=== PATIENT | male | born 1975 | race Caucasian/White ===

== ENCOUNTER 2017-02-04 20:26 | Emergency (ER) | payer OTHER ==
[~2017-02-04] VITALS: Ht 175.3 cm; Wt 133.5 kg
[2017-02-04 21:11] VITALS: Ht 175.3 cm; Wt 133.5 kg
--- NOTE | 2017-02-04 21:40 | ERD ---
ER Documentation Chief Complaint Date/Time DATE: 02/04/17 TIME: 21:34 Chief Complaint LEFT EAR PAIN, WENT SWIMMING "WATER POSSIBLY WENT INSIDE" HPI This [id number] old Mosotho speaking male patient presents to emergency department with for evaluation of left or otalgia. Symptoms started after swimming 5 days ago. Patient reports pain has its own heartbeat and it is described as pressure, denies change in hearing reports sensation of water in his ear, has been taking [id number] Advil with little relief of symptoms. Patient denies any runny nose, fever, or dizziness. Patient denies antibiotic use in the last 3 months, denies smoking. ROS All systems reviewed and are negative except as per history of present illness. Allergies Allergies: Coded Allergies: No Known Allergy (Unverified , 11/08/14) PMhx/Soc Hx Alcohol Use: No Hx Substance Use: No Hx Tobacco Use: No Physical Exam Vitals Vital Signs Date Time Temp Pulse Resp B/P Pulse Ox O2 Delivery O2 Flow Rate FiO2 02/04/17 21:11 98.5 75 18 138/78 98 Vitals stable, triage notes reviewed Physical Exam Const: No acute distress Head: Atraumatic Eyes: Normal Conjunctiva, PERRLA, EOMI ENT: Right tympanic membrane is erythematous, bulging, with positive light reflex, left tympanic membrane is distorted, boggy, with purulent discharge between 1500 and 1800 light reflex is not visualized, no mastoid tenderness Neck: Full range of motion..~ No meningismus Resp: Chest rises and falls symmetrically, clear to auscultation bilaterally no rales wheezes or rhonchi Cardio: Regular rate and rhythm, no murmurs Abd: Soft, non tender, non distended. No epigastric pain Skin: Back: Ext: Neur: Awake and alert Psych: Normal Mood and Affect Procedures/MDM This pleasant 41-year-old Mosotho speaking male patient brought into emergency department today by for 4 day history of otalgia. Patient has no other associated symptoms, denies dizziness, nasal congestion runny nose postnasal drip. Allergic rhinitis, mastoiditis, or foreign body is not suspected. History and physical exam support a otitis media. Patient will be treated with Augmentin 875 mg twice daily 10 days, will be given 400 mg ibuprofen for pain. Warm compresses, return to emergency department if symptoms fail to improve as anticipated, fever, change in hearing, or discharge coming from the ear. Maladies MDM Departure Diagnosis: Primary Impression: Otitis media Otitis media type: suppurative Laterality: left Chronicity: acute Recurrence: not specified as recurrent Spontaneous tympanic membrane rupture: without spontaneous rupture Qualified Code: H66.002 - Acute suppurative otitis media of left ear without spontaneous rupture of tympanic membrane, recurrence not specified Condition: Good Patient Instructions: Otitis Media, Abx Tx (Adult) Referrals: [facility] Additional Instructions: Thank you for for coming to [facility] for your care today. Please ask your nurse or provider if you have questions about your care today and do not leave until all your questions have been answered. Please use any medications given as directed and follow-up with your doctor (or the doctor you were referred to) in the next 2-3 days. If you do not have a primary care doctor you may follow up at the [facility] (listed below). You may also use motrin and tylenol as needed for fever and/or pain unless instructed otherwise by your provider or nurse. Indications for more urgent follow-up have been discussed, but you may return to the Emergency Department at ANY time for any worrisome or worsening symptoms. If you have abdominal pain, please know that no test or exam you received is perfect and you should follow up within 8 hours for continued pain. If you had any imaging studies today, such as an X-Ray or CT Scan, these studies will be reviewed later by a radiologist. You will be called if there are important findings that were not identified today, so make sure the contact information you provided at registration is correct. If you received any narcotic pain control medicine today, such as Vicodin, Morphine or Dilaudid, your coordination and judgment may be affected for a number of hours. Please do not drive or operate heavy machinery, and you may want someone to assist you at home. If you were given a prescription for narcotic medication, be aware that it is very addictive- use sparingly and only if necessary. BLUE TOMLINSON Feb 04, 2017 21:40
[2017-02-04] MEDS ORDERED: IBUP400T22 PO (21:41)
[2017-02-04] MEDS ORDERED: AMOX1TAB10 PO (21:41)
== END 2017-02-04 21:42 | disposition home or self-care (01) ==
LOC: E/R 20:26
DX: H66.002 Acute suppurative otitis media without spontaneous rupture of ear drum, left ear (principal)
CPT/HCPCS: 99283